=== PATIENT | female | born 1975 | race Caucasian/White ===

== ENCOUNTER 2022-03-30 06:11 | Day surgery (SDC) | payer SELFPAY ==
[2022-03-30] MEDS ORDERED: Lactated Ringers 1,000 ML IV SCH (06:30)
[2022-03-30] MEDS ORDERED: fentaNYL 50 MCG/ML SDV IVPUSH PRN (07:12)
[2022-03-30] MEDS ORDERED: Albuterol 0.083% 2.5 MG/3 ML Neb Soln NEB PRN (07:12)
[2022-03-30] MEDS ORDERED: Naloxone 0.4 MG/ML SDV IVPUSH PRN (07:12)
[2022-03-30] MEDS ORDERED: Metoclopramide 10 MG/2 ML SDV IVPUSH PRN (07:12)
[2022-03-30] MEDS ORDERED: HYDROmorphone 1 MG/ML Syringe IVPUSH PRN (07:12)
[2022-03-30] MEDS ORDERED: Morphine 2 MG/ML SYRINGE IVPUSH PRN (07:12)
[2022-03-30] MEDS ORDERED: Ondansetron 4 MG/2 ML SDV IVPUSH PRN (07:12)
[2022-03-30] MEDS ORDERED: Ferric Subsulfate Topical Soln 8 GM (8 ML) Bottle ONE (07:33)
[2022-03-30] MEDS ORDERED: Iodine/Potassium Iodide 5% Solution 14 ML Bottle ONE (07:33)
[2022-03-30] MEDS ORDERED: Lidocaine 1% with EPINEPHrine 1:100,000 50 ML MDV ONE (07:33)
[2022-03-30] MEDS ORDERED: Midazolam 1 MG/ML 2 ML SDV ONE (07:34)
[2022-03-30] MEDS ORDERED: Lidocaine 2% 5 ML SDV ONE (07:34)
[2022-03-30] MEDS ORDERED: Propofol 200 MG/20 ML SDV ONE (07:34)
[2022-03-30] MEDS ORDERED: Ondansetron 4 MG/2 ML SDV ONE (07:34)
[2022-03-30] MEDS ORDERED: fentaNYL 100 MCG/2 ML SDV ONE ×2 (07:34→08:30)
[2022-03-30] MEDS ORDERED: Dexamethasone 4 MG/ML 5 ML MDV ONE (07:34)
[2022-03-30 07:54] LABS: POTASSIUM,K 3.7 mmol/L (3.5-5.1)
[2022-03-30] MEDS ORDERED: ePHEDrine 50 MG/ML SDV ONE (08:38)
[2022-03-30] MEDS ORDERED: Water For Injection, Sterile 20 ML ONE (08:38)
[2022-03-30] MEDS ORDERED: Ketorolac 30 MG/ML SDV ONE (08:49)
[2022-03-30] MEDS ORDERED: Acetaminophen/HYDROcodone 325-5 MG Tab PO PRN (09:21)
== END 2022-03-30 10:25 | disposition home or self-care (01) ==
LOC: MW.SDS 06:11
PROVIDERS: ATTEND Obstetrics & Gynecology
DX: D06.9 Carcinoma in situ of cervix, unspecified (principal); E66.9 Obesity, unspecified; Z79.899 Other long term (current) drug therapy; Z98.890 Other specified postprocedural states; Z68.36 Body mass index [BMI] 36.0-36.9, adult
CPT/HCPCS: 36415; 57460; 80053; 81025; 85027; A9270; J0131; J1100; J1885; J2250; J2405; J2704; J3010; J7120; 00940; J3490